=== PATIENT | female | born 1990 ===

== ENCOUNTER 2017-05-18 20:55 | Emergency (ER) | payer MEDICAID, OTHER ==
[2017-05-18 21:05] VITALS: BP 142/85; RESP 18; TEMP 98; O2SAT 99
--- NOTE | 2017-05-18 21:56 | ED PDOC ---
HPI: Abdomen Time Seen by Provider: 05/18/17 21:13 Chief Complaint (Nursing): Chest Pain Chief Complaint (Provider): Abdominal pain History Per: Patient History/Exam Limitations: no limitations Onset/Duration Of Symptoms: Days Outside of [place] travel?: No Current Symptoms Are (Timing): Still Present Past Medical History Vital Signs: Last Vital Signs Temp 98 F 05/18/17 21:03 Pulse 94 H 05/18/17 21:03 Resp 18 05/18/17 21:03 BP 142/85 05/18/17 21:03 Pulse Ox 99 05/18/17 21:03 - Medical History PMH: CAD (Csgvs-Porksoigw-Zneba syndrome) - Family History Family History: States: Unknown Family Hx - Home Medications Home Medications: Ambulatory Orders Medication Instructions Recorded Dicyclomine [Bentyl] 10 mg PO QID PRN #30 cap 10/09/15 Docusate Sodium [Colace] 100 mg PO TID #1 bottle 10/09/15 Famotidine [Pepcid] 20 mg PO DAILY #30 tab 10/09/15 Chlorhexidine 0.12% [Peridex] 1 applic PO BID #1 bottle 11/17/16 Ibuprofen [Motrin Tab] 1 tab PO Q6 PRN #15 tab 11/17/16 - Allergies Allergies/Adverse Reactions: Allergies Allergy/AdvReac Type Severity Reaction Status Date / Time No Known Allergies Allergy Verified 10/08/15 22:01 - ECG O2 Sat by Pulse Oximetry: 99
[2017-05-18 22:12] LABS: BASO # 0.1 K/uL (0.0-0.2); BASO % 0.6 % (0.0-2.0); EOS # 0.1 K/uL (0.0-0.7); EOS % 1.3 % (0.0-4.0); HEMOGLOBIN 12.4 g/dL (12.0-16.0); LYMPH # 2.6 K/uL (1.0-4.3); LYMPH % 24.8 % (20.0-40.0); MEAN CELL VOLUME 86.1 fl (81.0-99.0); MEAN CORPUSCULAR HEMOGLOBIN 28.2 pg (27.0-31.0); MEAN CORPUSCULAR HGB CONC 32.8 g/dL (33.0-37.0); MEAN PLATELET VOLUME 9.1 fl (7.2-11.7); MONO # 0.9 K/uL (0.0-0.8); MONO % 8.4 % (0.0-10.0); NEUT # 6.7 K/uL (1.8-7.0); NEUT % 64.9 % (50.0-75.0); RBC 4.4 Mil/uL (3.80-5.20); RED CELL DISTRIBUTION WIDTH 13.5 % (11.5-14.5); WHITE BLOOD COUNT 10.4 K/uL (4.8-10.8)
--- NOTE | 2017-05-18 22:17 | ED PDOC ---
HPI: Chest Pain Time Seen by Provider: 05/18/17 21:13 Chief Complaint (Nursing): Chest Pain Chief Complaint (Provider): Chest pain History Per: Patient History/Exam Limitations: no limitations Onset/Duration Of Symptoms: Days (4) Current Symptoms Are (Timing): Still Present Severity: Moderate Quality: "Pain" Additional Complaint(s): The patient is a 26yo female, PMHx of Bower Parkinson White, compliant with medications, presents to ED for evaluation of left sided chest pain present for the past 5 days. The pt reports the pain is intermittent, worse with movement of left upper extremity, deep inspiration or cough. Pt reports some associated shortness of breath and weakness but denies any outright productive cough, runny nose or fever. She denies any injuries, leg swelling. Pt states she took ibuprofen and aspirin with minimal relief. Offers no additional medical complaints. PCP: [facility] Past Medical History Reviewed: Historical Data, Nursing Documentation, Vital Signs Vital Signs: Last Vital Signs Temp 98 F 05/18/17 21:03 Pulse 93 H 05/19/17 00:00 Resp 18 05/18/17 21:03 BP 142/85 05/18/17 21:03 Pulse Ox 99 05/19/17 00:00 - Medical History PMH: CAD (Chzqw-Sjfeokfsw-Lmvxx syndrome) - Surgical History Surgical History: No Surg Hx - Family History Family History: States: Unknown Family Hx - Social History Current smoker - smoking cessation education provided: No Alcohol: None Drugs: Denies - Home Medications Home Medications: Ambulatory Orders Medication Instructions Recorded Dicyclomine [Bentyl] 10 mg PO QID PRN #30 cap 10/09/15 Docusate Sodium [Colace] 100 mg PO TID #1 bottle 10/09/15 Famotidine [Pepcid] 20 mg PO DAILY #30 tab 10/09/15 Chlorhexidine 0.12% [Peridex] 1 applic PO BID #1 bottle 11/17/16 Ibuprofen [Motrin Tab] 1 tab PO Q6 PRN #15 tab 11/17/16 Cyclobenzaprine [Flexeril] 5 mg PO Q8 PRN #15 tab 05/18/17 Naproxen [Naprosyn] 1 tab PO BID PRN #30 tab 05/18/17 - Allergies Allergies/Adverse Reactions: Allergies Allergy/AdvReac Type Severity Reaction Status Date / Time No Known Allergies Allergy Verified 10/08/15 22:01 BERNABE Risk Score for UA/NSTEMI - BERNABE Risk Score Age > 64: NO 3 or more CAD Risk Factors: NO Known CAD (Stenosis greater than 50%): NO Aspirin use in past 7 days: NO Severe Angina: NO EKG ST changes greater than 0.5mm: NO Positive Cardiac Marker: NO BERNABE Score: 0 Risk %: 5% Review of Systems ROS Statement: Except As Marked, All Systems Reviewed And Found Negative Constitutional: Positive for: Weakness ENT: Negative for: Nose Discharge Cardiovascular: Positive for: Chest Pain (left sided, intermittent ) Respiratory: Positive for: Shortness of Breath. Negative for: Cough Physical Exam - Reviewed Nursing Documentation Reviewed: Yes Vital Signs Reviewed: Yes - Physical Exam Appears: Positive for: Well, Non-toxic, No Acute Distress Head Exam: Positive for: ATRAUMATIC, NORMAL INSPECTION, NORMOCEPHALIC Skin: Positive for: Normal Color, Warm, DRY Eye Exam: Positive for: Normal appearance Neck: Positive for: Normal, Supple Cardiovascular/Chest: Positive for: Regular Rate, Rhythm. Negative for: Chest Non Tender (mild tenderness to palpation of left anterior chest wall) Respiratory: Positive for: Normal Breath Sounds. Negative for: Respiratory Distress Gastrointestinal/Abdominal: Positive for: Normal Exam, Soft Neurologic/Psych: Positive for: Alert, Oriented - Laboratory Results Result Diagrams: 05/18/17 21:55 05/18/17 21:55 - ECG ECG: Positive for: Interpreted By Me, Viewed By Az ECG Rhythm: Positive for: Sinus Rhythm Interpretation Of ECG: EKG consistent with WPW syndrome. Rate: 93 O2 Sat by Pulse Oximetry: 99 Pulse Ox Interpretation: Normal - Radiology X-Ray: Interpreted by Me X-Ray Interpretation: No Acute Disease - Progress Re-evaluation Time: 23:00 Condition: Improved (stable. Eager to go home.) Medical Decision Making Medical Decision Making: Time: 2119 Impression: Chest pain Differential: Costochondritis, muscle spasm, pneumonia, PE Plan: -- EKG -- Bloodwork -- CXR Reassess No clinically significant lab abnormalities. Pt feels better s/p meds. DW pt findings and plan of care. Scribe Attestation: Documented by Mariya Garnica acting as a scribe for Carina Tavera MD. Provider Attestation: All medical record entries made by the Scribe were at my direction and personally dictated by me. I have reviewed the chart and agree that the record accurately reflects my personal performance of the history, physical exam, medical decision making, and the department course for this patient. I have also personally directed, reviewed, and agree with the discharge instructions and disposition. Disposition - Clinical Impression Clinical Impression: Chest pain Counseled Patient/Family Regarding: Studies Performed, Diagnosis, Need For Followup, Rx Given - Disposition Referrals: formerly [facility] [Outside] Disposition: Routine/Home Disposition Time: 23:00 Condition: STABLE Prescriptions: Cyclobenzaprine [Flexeril] 5 mg PO Q8 PRN #15 tab PRN Reason: muscle spasm Naproxen [Naprosyn] 1 tab PO BID PRN #30 tab PRN Reason: Pain Instructions: Chest Pain (ED) Forms: [facility] ED School/Work Excuse
[2017-05-18 22:25] LABS: ALB/GLOB RATIO 1.3 (1.0-2.1); ALBUMIN 4.4 g/dL (3.5-5.0); ALT/SGPT 38 U/L (9-52); AST/SGOT 23 U/L (14-36); BLOOD UREA NITROGEN 11 mg/dl (7-17); CALCIUM 9.5 mg/dL (8.4-10.2); GFR AFRICAN-AMERICAN > 60; GFR NON-AFRICAN AMERICAN > 60
[2017-05-18 22:42] VITALS: PULSE 93
--- NOTE | 2017-05-19 08:35 | CARD ---
APPROVED REPORT EKG Measurement Heart [id number] <Conclusion> Normal sinus rhythm
--- NOTE | 2017-05-19 11:37 | RAD ---
HISTORY: Chest pain COMPARISON: No prior. TECHNIQUE: Chest PA and lateral FINDINGS: LUNGS: The lungs are well inflated and clear. PLEURA: No significant pleural effusion identified. No pneumothorax apparent. CARDIOVASCULAR: Normal. OSSEOUS STRUCTURES: No significant abnormalities. VISUALIZED UPPER ABDOMEN: Normal. OTHER FINDINGS: None. IMPRESSION: No active pulmonary disease.
== END 2017-05-19 00:15 | disposition home or self-care (01) ==
LOC: H.ER 20:55
DX: R07.9 Chest pain, unspecified (principal)

== ENCOUNTER 2019-03-26 19:14 | Emergency (ER) | payer MEDICAID, OTHER ==
[2019-03-26 19:26] VITALS: RESP 18; O2SAT 100
[2019-03-26] MEDS ORDERED: Iohexol 240 (50 ml) PO ONE (19:52)
[2019-03-26] MEDS ORDERED: Sodium Chloride 0.9% 1,000 ML IV STA (19:53)
--- NOTE | 2019-03-26 19:55 | ED PDOC ---
HPI: Abdomen Time Seen by Provider: 03/26/19 19:30 Chief Complaint (Nursing): Abdominal Pain Chief Complaint (Provider): Abdominal pain History Per: Patient, Family (), Family Life Counselor (KAILACRISTELABrittani [id number] [place]) History/Exam Limitations: no limitations Onset/Duration Of Symptoms: Days (2x weeks), Intermittent Episodes Severity: Moderate Pain Scale Rating Of: 5 Location Of Pain/Discomfort: Diffuse (more left sided) Associated Symptoms: Fever (1x day), Nausea. denies: Vomiting, Constipation, Urinary Symptoms Additional Complaint(s): 28 year old female with a past medical history of Obqpn-Llufovlpq-Ravhv syndrome presents to the ED for an evaluation of diffuse abdominal pain that has been intermittent for 2x weeks. Patient states that the pain is more left sided, sometimes radiating the right side, and is a level 5/10. Patient reports having nausea and a fever today. Patient states that 2x months ago she saw her PMD for abdominal pain and was diagnosed with constipation and was told to change her diet. Patient denies having constipation, urinary symptoms, vomiting, or diarrhea. Of note: Patient currently on metoprolol. PMD: Moose Barger MD Last Menstral Period: 03/08/2019 Past Medical History Reviewed: Historical Data, Nursing Documentation, Vital Signs Vital Signs: Last Vital Signs Temp 98.6 F 03/26/19 19:22 Pulse 87 03/26/19 19:22 Resp 18 03/26/19 19:22 BP 136/72 03/26/19 19:22 Pulse Ox 100 03/26/19 19:22 SAKSHI Report Viewed: Yes Primary Care Provider: Moose Barger - Medical History PMH: CAD (Ukgza-Lndnseech-Vaqvl syndrome) - Surgical History Surgical History: No Surg Hx - Family History Family History: States: No Known Family Hx - Social History Current smoker - smoking cessation education provided: No Alcohol: None Drugs: Denies - Home Medications Home Medications: Ambulatory Orders Medication Instructions Recorded Dicyclomine [Bentyl] 10 mg PO QID PRN #30 cap 10/09/15 Docusate Sodium [Colace] 100 mg PO TID #1 bottle 10/09/15 Famotidine [Pepcid] 20 mg PO DAILY #30 tab 10/09/15 Chlorhexidine 0.12% [Peridex] 1 applic PO BID #1 bottle 11/17/16 Ibuprofen [Motrin Tab] 1 tab PO Q6 PRN #15 tab 11/17/16 Cyclobenzaprine [Flexeril] 5 mg PO Q8 PRN #15 tab 05/18/17 Naproxen [Naprosyn] 1 tab PO BID PRN #30 tab 05/18/17 - Allergies Allergies/Adverse Reactions: Allergies Allergy/AdvReac Type Severity Reaction Status Date / Time No Known Allergies Allergy Verified 10/08/15 22:01 Review of Systems ROS Statement: Except As Marked, All Systems Reviewed And Found Negative Constitutional: Positive for: Fever (1x day) Gastrointestinal: Positive for: Nausea, Abdominal Pain (diffuse, more left sided). Negative for: Vomiting, Diarrhea, Constipation Genitourinary Female: Negative for: Dysuria, Frequency Physical Exam - Reviewed Nursing Documentation Reviewed: Yes Vital Signs Reviewed: Yes - Physical Exam Appears: Positive for: Well, Non-toxic, No Acute Distress Head Exam: Positive for: ATRAUMATIC, NORMOCEPHALIC Skin: Positive for: Normal Color, Warm, Dry Eye Exam: Positive for: Normal appearance ENT: Positive for: Normal ENT Inspection Cardiovascular/Chest: Positive for: Regular Rate, Rhythm Respiratory: Positive for: Normal Breath Sounds Gastrointestinal/Abdominal: Positive for: Bowel Sounds (active), Soft, Te nderness (minimal left upper quadrant tenderness.) Neurological/Psych: Positive for: Awake, Alert, Oriented (3x) - Laboratory Results Result Diagrams: 03/26/19 20:01 03/26/19 20:01 - ECG O2 Sat by Pulse Oximetry: 100 (RA) Pulse Ox Interpretation: Normal Medical Decision Making Medical Decision Makin:37 Initial impression: 28 year old female with abdominal pain. rule out appendicitis, colitis, uti Initial plan: * CT abdomen and pelvis with PO and IV contrast * CMP * CBC with differential * IV NS 1,000 ml IV 999 mls/hr * omnipaque 240 50 ml PO * toradol 15 mg IVP once * zofran 4 mg IV * reevaluation 0037 CT Abdomen/Pelvis: Minimal thickening of the rectosigmoid junction. Underdistention, spasm versus mild colitis. Minimal diffuse thickening of the bladder. Possibly mild cystitis. Chronic changes of pelvic congestion syndrome. The liver is of uniform attenuation without mass or defect. There is no intra or extrahepatic biliary ductal dilatation. The spleen is normal. The gallbladder is within normal limits. The pancreas is of normal contour and attenuation characteristics. There is no evidence of adrenal mass. Both kidneys demonstrate prompt and equal nephrograms. The kidneys are normal in size, shape and configuration. There is no evidence of renal or ureteral mass. No renal or ureteral calculi are identified. There is no hydroureter or hydronephrosis. No evidence for appendicitis. There is no bowel wall thickening. No evidence for small or large bowel obstruction. There is no evidence of abdominal ascites or lymphadenopathy. There is no evidence of intrinsic or extrinsic bladder mass. There is no pelvic ascites or lymphadenopathy. Images of the lung bases show no evidence of pleural or parenchymal mass. There are no pleural effusions. The bony structures are free of lytic or blastic lesions. IMPRESSION: Minimal thickening of the rectosigmoid junction. Underdistention, spasm versus mild colitis. Minimal diffuse thickening of the bladder. Possibly mild cystitis. Chronic changes of pelvic congestion syndrome. Labs reviewed and are within normal limits. Urinalysis reviewed, no UTI noted Patient has normal vital signs. Patient able to tolerate PO intake as well. P atient is stable for discharge home, informed to follow up with GI regarding colitis findings. Informed to follow up with OBGYN regarding pelvic congestion syndrome findings. Patient informed to follow up with PMD as well. Return precautions given. Scribe Attestation: Documented by Alma Roque, acting as a scribe for Rich Hines MD. Provider Scribe Attestation: All medical record entries made by the Scribe were at my direction and persona lly dictated by me. I have reviewed the chart and agree that the record accurately reflects my personal performance of the history, physical exam, medical decision making, and the department course for this patient. I have also personally directed, reviewed, and agree with the discharge instructions and disposition. Disposition - Clinical Impression Clinical Impression: Pelvic congestion syndrome - Patient ED Disposition Is Patient to be Admitted: No Counseled Patient/Family Regarding: Studies Performed, Diagnosis, Need For Followup - Disposition Referrals: [facility] [Outside] [facility] [Outside] Joey Cisneros MD, PhD [Staff Provider] - Disposition: Routine/Home Disposition Time: 00:40 Condition: IMPROVED Additional Instructions: follow up with Dr Barger as well as GI and obgyn doctor in 1-2 days return to the ED with any worsening or concerning symptoms Instructions: Acute Abdomen (Belly Pain), Adult (DC) Forms: [employer] ([place])
[2019-03-26] MEDS ORDERED: Iohexol 240 (50 ml) ONE (20:04)
[2019-03-26 20:09] LABS: BASO % 0.4 % (0.0-2.0); EOS # 0.2 K/uL (0.0-0.7); EOS % 2.1 % (0.0-4.0); HEMOGLOBIN 12.3 g/dL (12.0-16.0); LYMPH # 3.2 K/uL (1.0-4.3); MEAN CELL VOLUME 85.8 fl (81.0-99.0); MEAN CORPUSCULAR HEMOGLOBIN 28.1 pg (27.0-31.0); MEAN CORPUSCULAR HGB CONC 32.7 g/dL (33.0-37.0); MEAN PLATELET VOLUME 8.8 fl (7.2-11.7); MONO # 0.8 K/uL (0.0-0.8); MONO % 7.7 % (0.0-10.0); NEUT % 58.8 % (50.0-75.0); RBC 4.39 Mil/uL (3.80-5.20); RED CELL DISTRIBUTION WIDTH 13.4 % (11.5-14.5); WHITE BLOOD COUNT 10.3 K/uL (4.8-10.8)
[2019-03-26 20:20] LABS: ALB/GLOB RATIO 1.3 (1.0-2.1); ALT/SGPT 29 U/L (9-52); AST/SGOT 22 U/L (14-36); BLOOD UREA NITROGEN 10 mg/dl (7-17); CALCIUM 8.8 mg/dL (8.4-10.2); GFR NON-AFRICAN AMERICAN > 60
[2019-03-26] MEDS ORDERED: Sodium Chloride 0.9% 50 ML IV ONE (23:29)
[2019-03-26] MEDS ORDERED: Iohexol 300 100 ML IJ ONE (23:29)
[2019-03-27 00:14] LABS: SQUAMOUS EPITHIAL 11 /hpf (0-5); URINE AMORPHOUS SEDIMENT RARE /ul (<OCC); URINE BACTERIA RARE (<OCC); URINE BILIRUBIN NEGATIVE (NEGATIVE); URINE BLOOD NEGATIVE (NEGATIVE); URINE CLARITY CLOUDY (Clear); URINE COLOR YELLOW (YELLOW); URINE GLUCOSE (UA) NEG (NEGATIVE); URINE HYALINE CAST 0-2 /hpf (0-2); URINE LEUKOCYTE ESTERASE NEG Leu/uL (Negative); URINE PROTEIN 30 mg/dL (NEGATIVE); URINE UROBILINOGEN 0.2-1.0 mg/dL (0.2-1.0)
[2019-03-27 01:04] VITALS: BP 128/70; PULSE 81; TEMP 98.2
--- NOTE | 2019-03-27 10:50 | CT ---
Date of service: 03/26/2019 PROCEDURE: CT Abdomen and Pelvis with contrast HISTORY: abd pain left sided COMPARISON: 10/09/2015. CT abdomen and pelvis. TECHNIQUE: Intravenous contrast dose: 90 cc Omnipaque 300. Radiation dose: Total exam DLP = 31.69 mGy-cm. This CT exam was performed using one or more of the following dose reduction techniques: Automated exposure control, adjustment of the mA and/or kV according to patient size, and/or use of iterative reconstruction technique. FINDINGS: LOWER THORAX: Unremarkable. LIVER: Unremarkable. No gross lesion or ductal dilatation. GALLBLADDER AND BILE DUCTS: Unremarkable. PANCREAS: Unremarkable. No gross lesion or ductal dilatation. SPLEEN: Unremarkable. ADRENALS: Unremarkable. No mass. KIDNEYS AND URETERS: Unremarkable. No hydronephrosis. No solid mass. VASCULATURE: Unremarkable. No aortic aneurysm. No atherosclerotic calcification or mural plaque present. BOWEL: Thickening of the wall of the distal small bowel/ileum consistent with ileitis. APPENDIX: A normal appendix is visualized in it's entirety. PERITONEUM: Unremarkable. No free fluid. No free air. LYMPH NODES: Unremarkable. No enlarged lymph nodes. BLADDER: Unremarkable. REPRODUCTIVE: Mildly enlarged, heterogeneous uterus. Contrast-enhancing characteristics suggest recently ruptured right adnexal cysts. BONES: No acute fracture. OTHER FINDINGS: None. IMPRESSION: Findings consistent with mild limited ileitis without evidence small bowel obstruction. Additional benign and/or incidental findings described above. Concordant results (preliminary interpretation) provided by [employer]. Procedure Completed: 23:35. Preliminary Report: Interpreted and electronically signed: 00:33. Final Interpretation: 10:46.
== END 2019-03-27 01:03 | disposition home or self-care (01) ==
LOC: H.ER 19:14
DX: N94.89 Other specified conditions associated with female genital organs and menstrual cycle (principal); I25.10 Atherosclerotic heart disease of native coronary artery without angina pectoris; I45.6 Pre-excitation syndrome
CPT/HCPCS: 74177; 80053; 81003; 81025; 85025; 87086; 96374; 99284; J1885; J2405; J7030; Q9966; Q9967